=== PATIENT | female | born 1980 | race Caucasian/White ===

== ENCOUNTER 2018-04-30 18:54 | Emergency (ER) | payer MEDICAID ==
[2018-04-30 19:28] VITALS: BP 124/77
--- NOTE | 2018-04-30 19:55 | RADIOLOGY REPORT (SQ) ---
EXAM DESCRIPTION: ANKLE RIGHT COMPLETE COMPLETED DATE/TIME: 04/30/2018 7:42 pm REASON FOR STUDY: rt ankle pain COMPARISON: 05/08/2016 NUMBER OF VIEWS: Three views. TECHNIQUE: AP, lateral, and oblique radiographic images acquired of the right ankle. LIMITATIONS: None. FINDINGS: MINERALIZATION: Normal. BONES: Calcaneal spur. No fracture. Cystic changes seen in the anterior calcaneus. JOINTS: No effusions. SOFT TISSUES: No soft tissue swelling. No foreign body. OTHER: No other significant finding. 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 No acute abnormality. TECHNICAL DOCUMENTATION: JOB ID: [id number] [employer]- All Rights Reserved Reading location - IP/workstation name: [email or web address]
--- NOTE | 2018-04-30 20:50 | ER Document Report ---
HPI - HPI Pain Level: 3 Notes: Patient is a 37-year-old female no significant past medical history who presents to the ED complaining of right lateral ankle pain 2 days. Patient states that she was getting on and off the boat around that time when her ankle started hurting. Patient states that she is able to ambulate otherwise, but does have an occasional limp. She has not had any medicines for her symptoms. No other concerns or complaints. Denies any headache, fever, URI, sore throat, chest pain, palpitations, syncope, cough, shortness of breath, wheeze, dyspnea, abdominal pain, nausea/vomiting/diarrhea, urinary retention, dysuria, hematuria , or rash. - ROS Systems Reviewed and Negative: Yes All other systems reviewed and negative - REPRODUCTIVE Reproductive: REPORTS: : Past Medical History - Social History Smoking Status: Never Smoker Family History: Reviewed & Not Pertinent Past Surgical History: Reports: Hx Cholecystectomy - Immunizations Hx Diphtheria, Pertussis, Tetanus Vaccination: Yes Vertical Provider Document - CONSTITUTIONAL Agree With Documented VS: Yes Notes: PHYSICAL EXAMINATION: GENERAL: Well-appearing, well-nourished and in no acute distress. LUNGS: Breath sounds clear to auscultation bilaterally and equal. No wheezes rales or rhonchi. HEART: Regular rate and rhythm without murmurs, rubs, gallops. Musculoskeletal: Rt ankle: FROM to passive/active. Strength 5+/5. N/V intact distal. + tenderness to the lateral malleolus. No bony tenderness of the foot. Achilles intact. No obvious ecchymosis. + mild swelling lateral malleolus. Extremities: No cyanosis, clubbing, or edema b/l. Peripheral pulses 2+. Capillary refill less than 3 seconds. NEUROLOGICAL: Normal speech, minimal limping gait. Normal sensory, motor exams PSYCH: Normal mood, normal affect. SKIN: Warm, Dry, normal turgor, no rashes or lesions noted. - INFECTION CONTROL TRAVEL OUTSIDE OF THE [place] IN LAST 30 DAYS: No Course - Re-evaluation Re-evalutation: 04/30/18 20:48 Patient is an afebrile, well-hydrated, 37-year-old female who presents to the ED with Rt ankle pain which I suspect to be a sprain versus strain. Vitals are acceptable without any significant tachycardia, tachypnea, or hypoxia. PE is otherwise unremarkable for any neurovascular compromise, obvious tendon/ ligament rupture, obvious fracture/dislocation, septic joint. X-ray was unremarkable for any acute pathology aside from possible aneurysmal bone cyst to the calcaneus and noted heel spur. Ankle stirrup provided today. Patient is nontoxic-appearing. Patient is able to ambulate and weight-bear although she has a slight limp. Pt declined crutches. No other labs or imaging warranted at this time based on H&P. Conservative measures otherwise for symptoms. Recheck with your PCM in 3-5 days. Schedule an appointment with orthopedics for further evaluation and management. Return to the ED with any worsening/concerning symptoms otherwise as reviewed in discharge. Patient is in agreement. - Vital Signs Vital signs: Temp Pulse Resp BP Pulse Ox 97.6 F 81 16 124/77 100 04/30/18 19:25 04/30/18 19:25 04/30/18 19:25 04/30/18 19:25 04/30/18 19:25 Discharge - Discharge Clinical Impression: Right ankle pain Qualifiers: Chronicity: acute Qualified Code(s): M25.571 - Pain in right ankle and joints of right foot Condition: Stable Disposition: HOME, SELF-CARE Instructions: Ankle Stirrup Splint ([facility]), Sprained Ankle ([facility]), Ice & Elevation ([facility]) Additional Instructions: Rest, Ice, Compression, Elevation Tylenol/ibuprofen as needed Light stretches daily Strength exercises as able Moist heat and massage may help F/u with your PCP in 3-5 days for a recheck Call orthopedics to schedule an appointment for further evaluation and management Return to the ED with any worsening symptoms and/or development of fever, headache, chest pain, palpitations, syncope, shortness of breath, trouble breathing, abdominal pain, n/v/d, muscle weakness/paralysis, numbness/tingling, swelling, redness, or other worsening symptoms that are concerning to you. Referrals: [facility] [Provider Group] - Follow up in 1 week
== END 2018-04-30 21:33 | disposition home or self-care (01) ==
LOC: ER 18:54
DX: M25.571 Pain in right ankle and joints of right foot (principal)
CPT/HCPCS: 99283; 73610; L1902

== ENCOUNTER 2019-08-27 16:24 | Emergency (ER) | payer MEDICAID ==
[2019-08-27] MEDS ORDERED: DIPHENHYDRAMINE HCL 50 MG/ML VIAL IV ONE (17:11)
[2019-08-27] MEDS ORDERED: METOCLOPRAMIDE HCL INJ/PF 10 MG/2 ML SDV IV ONE (17:11)
[2019-08-27] MEDS ORDERED: KETOROLAC TROMETHAMINE INJ/PF 30 MG/1 ML SDV IV ONE (17:11)
--- NOTE | 2019-08-27 17:15 | ER Document Report ---
ED Medical Screen (RME) - General Chief Complaint: Headache Stated Complaint: HEADACHE, FACIAL PAIN, SWELLING Time Seen by Provider: 08/27/19 17:01 Notes: 39-year-old otherwise healthy female presents the emergency department with a migraine headache for the past week, a red right eye and right-sided neck swelling that started this morning. Patient also has small raised painful nodules on the anterior superior right dorsum the nose. No fevers or chills, no nausea or vomiting, no flulike symptoms. Exam: Well-appearing in no acute distress, there are 2 raised areas on the nose near the bridge that are painful to touch, patient does have some soft tissue swelling of the right anterior neck I have greeted and performed a rapid initial assessment of this patient. A comprehensive ED assessment and evaluation of the patient, analysis of test results and completion of medical decision making process will be conducted by an additional ED providers. TRAVEL OUTSIDE OF THE [place] IN LAST 30 DAYS: No - Related Data Allergies/Adverse Reactions: latex Allergy (Verified 05/08/16 20:24) Past Medical History - Social History Frequency of alcohol use: None Drug Abuse: None Renal/ Medical History: Denies: Hx Peritoneal Dialysis Past Surgical History: Reports: Hx Cholecystectomy - Immunizations Hx Diphtheria, Pertussis, Tetanus Vaccination: Yes Physical Exam - Vital signs Vitals: Temp Pulse Resp BP Pulse Ox 99.2 F 92 16 127/86 H 99 08/27/19 16:28 08/27/19 16:28 08/27/19 16:28 08/27/19 16:28 08/27/19 16:28 Course - Vital Signs Vital signs: Temp Pulse Resp BP Pulse Ox 99.2 F 92 16 127/86 H 99 08/27/19 16:28 08/27/19 16:28 08/27/19 16:28 08/27/19 16:28 08/27/19 16:28
[2019-08-27] MEDS ORDERED: VALACYCLOVIR HCL 500 MG TABLET PO ONE (17:46)
--- NOTE | 2019-08-27 17:47 | ER Document Report ---
HPI - HPI Patient complains to provider of: Headache pain Time Seen by Provider: 08/27/19 17:01 Onset: Last week Onset/Duration: Gradual Quality of pain: Achy Pain Level: 3 Context: Patient presents complaining of right-sided headache pain for the past week. Patient also noticed that she had some skin lesions pop up on the right side of her nose starting yesterday. Patient denies any nausea or vomiting. Patient does complain of some irritation to the right eye. Patient denies contact lenses although states that she is supposed to wear glasses. Associated Symptoms: Headache, Other - Skin rash to nose. denies: Fever, Rhinnorhea Exacerbated by: Denies Relieved by: Denies Similar symptoms previously: No Recently seen / treated by doctor: No - ROS Systems Reviewed and Negative: Yes All other systems reviewed and negative - CONSTITUTIONAL Constitutional: DENIES: Fever - EENT EENT: DENIES: Sore Throat - NEURO Neurology: REPORTS: Headache. DENIES: Vision blurred, Dizzinesss / Vertigo - RESPIRATORY Respiratory: DENIES: Coughing - GASTROINTESTINAL Gastrointestinal: DENIES: Nausea - DERM Skin Color: Erythema - Right side of nose Skin Problems: Rash Past Medical History - General Information source: Patient - Social History Smoking Status: Current Every Day Smoker Frequency of alcohol use: None Drug Abuse: None Occupation: Retail Lives with: Spouse/Significant other Family History: Reviewed & Not Pertinent Patient has suicidal ideation: Yes - pt states that she has clinical depression Patient has homicidal ideation: No Renal/ Medical History: Denies: Hx Peritoneal Dialysis Psychiatric Medical History: Reports: Hx Anxiety, Hx Depression Past Surgical History: Reports: Hx Cholecystectomy - Immunizations Hx Diphtheria, Pertussis, Tetanus Vaccination: Yes Vertical Provider Document - CONSTITUTIONAL Agree With Documented VS: Yes Exam Limitations: No Limitations General Appearance: WD/WN, No Apparent Distress - INFECTION CONTROL TRAVEL OUTSIDE OF THE [place] IN LAST 30 DAYS: No - HEENT HEENT: Atraumatic, Normocephalic, PERRLA Notes: Sclera clear bilaterally, no corneal abrasion, foreign body, ulcer or dendrite. - NECK Neck: Normal Inspection, Supple. negative: Lymphadenopathy-Left, Lymphadenopathy-Right - RESPIRATORY Respiratory: Breath Sounds Normal, No Respiratory Distress - CARDIOVASCULAR Cardiovascular: Regular Rate, Regular Rhythm - BACK Back: Normal Inspection - MUSCULOSKELETAL/EXTREMETIES Musculoskeletal/Extremeties: MAEW, FROM - NEURO Level of Consciousness: Awake, Alert, Appropriate Motor/Sensory: No Motor Deficit - DERM Integumentary: Warm, Dry, Rash - Erythematous papular rash to right side of nose, crusted lesion to tip of nose Course - Re-evaluation Re-evalutation: 08/27/19 19:54 Pt with headache right side of face, patient does have erythematous rash that looks suspicious for shingles to right side of nose. No evidence for any zoster ophthalmicus. Patient encouraged to follow-up with ophthalmology for recheck. The patient presents with headache without signs of ORTHOPHOTOGRAPHY TECHNICIAN bleed, stroke, or other serious etiology. The patient is neurologically intact. Given the extremely low risk of these diagnoses further testing and evaluation for these possibilities does not appear to be indicated at this time. The patient has been instructed to return if the symptoms worsen or change in any way. - Vital Signs Vital signs: Temp Pulse Resp BP Pulse Ox 99.2 F 92 16 127/86 H 99 08/27/19 16:28 08/27/19 16:28 08/27/19 16:28 08/27/19 16:28 08/27/19 16:28 - Laboratory Result Diagrams: 08/27/19 17:30 08/27/19 17:30 Laboratory results interpreted by me: 08/27/19 19:53 Labs- Entire Visit 08/27/19 08/27/19 17:30 17:30 WBC 11.9 H RBC 4.87 Hgb 13.2 Hct 40.2 MCV 83 MCH 27.0 MCHC 32.7 RDW 14.9 H Plt Count 339 Lymph % (Auto) 22.7 Chaves % (Auto) 7.2 Eos % (Auto) 1.2 Baso % (Auto) 1.1 Absolute Neuts (auto) 8.1 Absolute Lymphs (auto) 2.7 Absolute Monos (auto) 0.9 Absolute Eos (auto) 0.1 Absolute Basos (auto) 0.1 Seg Neutrophils % 67.8 Sodium 141.1 Potassium 4.1 Chloride 104 Carbon Dioxide 26 Anion Gap 11 BUN 11 Creatinine 0.68 Est GFR ( Amer) > 60 Est GFR (MDRD) Non-Af > 60 Glucose 92 Calcium 9.5 Total Bilirubin 0.3 Direct Bilirubin 0.2 Neonat Total Bilirubin Not Reportable Neonat Direct Bilirubin Not Reportable Neonat Indirect Bili Not Reportable AST 18 ALT 13 Alkaline Phosphatase 98 Total Protein 8.2 Albumin 4.5 Discharge - Discharge Clinical Impression: Headache Qualifiers: Headache type: unspecified Headache chronicity pattern: unspecified pattern Intractability: not intractable Qualified Code(s): R51 - Headache Shingles Qualifiers: Herpes zoster complications: without complications Qualified Code(s): B02.9 - Zoster without complications Condition: Stable Disposition: HOME, SELF-CARE Instructions: Headache ([facility]), Oral Narcotic Medication ([facility]), Shingles ([facility]) Additional Instructions: Return immediately for any new or worsening symptoms Followup with your primary care provider, call tomorrow to make a followup appointment Follow-up with store loss prevention manager for recheck, call tomorrow for an appointment Prescriptions: Butalb/Acetaminophen/Caffeine [Fioricet (50-325-40 mg) Tablet] 1 - 2 tab PO Q4H PRN #12 each PRN Reason: Valacyclovir HCl [Valacyclovir] 1,000 mg PO TID #21 tablet Referrals: [facility] [Provider Group] - Follow up tomorrow
[2019-08-27 18:08] LABS: ABSOLUTE BASOPHILS # (AUTO) 0.1 10^3/uL (0.0-0.2); ABSOLUTE EOSINOPHILS # (AUTO) 0.1 10^3/uL (0.0-0.6); ABSOLUTE LYMPHOCYTES (AUTO) 2.7 10^3/uL (0.5-4.7); ABSOLUTE MONOCYTES (AUTO) 0.9 10^3/uL (0.1-1.4); ABSOLUTE NEUT (AUTO) 8.1 10^3/uL (1.7-8.2); BASOPHILS % (AUTO) 1.1 % (0-2); EOSINOPHILS % (AUTO) 1.2 % (0-6); HEMATOCRIT 40.2 % (36.0-47.0); HEMOGLOBIN 13.2 g/dL (12.0-15.5); LYMPHOCYTES % (AUTO) 22.7 % (13-45); MEAN CORPUSCULAR HGB CONC 32.7 g/dL (32.0-36.0); MEAN CORPUSCULAR VOLUME 83 fl (80-97); MONOCYTES % (AUTO) 7.2 % (3-13); PLATELET COUNT 339 10^3/uL (150-450); RED BLOOD COUNT 4.87 10^6/uL (3.72-5.28); RED CELL DISTRIBUTION WIDTH 14.9 % (11.5-14.0); SEGMENTED NEUTROPHILS % (AUTO) 67.8 % (42-78); TOTAL CELLS COUNTED % (AUTO) 100 %; WHITE BLOOD COUNT 11.9 10^3/uL (4.0-10.5)
[2019-08-27 18:26] LABS: ALBUMIN 4.5 g/dL (3.5-5.0); ALKALINE PHOSPHATASE 98 U/L (38-126); ANION GAP 11 (5-19); ASPARTATE AMINO TRANSFERASE 18 U/L (14-36); BILIRUBIN,DIRECT 0.2 mg/dL (0.0-0.4); BILIRUBIN,TOTAL 0.3 mg/dL (0.2-1.3); BLOOD UREA NITROGEN 11 mg/dL (7-20); CALCIUM 9.5 mg/dL (8.4-10.2); CARBON DIOXIDE 26 mmol/L (22-30); CHLORIDE 104 mmol/L (98-107); GLUCOSE 92 mg/dL (75-110); POTASSIUM 4.1 mmol/L (3.6-5.0); TOTAL PROTEIN 8.2 g/dL (6.3-8.2)
[2019-08-27 22:04] VITALS: BP 95/58
== END 2019-08-27 22:06 | disposition home or self-care (01) ==
LOC: ER 16:24
DX: R51 Headache (principal); B02.9 Zoster without complications; J02.9 Acute pharyngitis, unspecified; F17.200 Nicotine dependence, unspecified, uncomplicated
CPT/HCPCS: 99284; 96374; 96375; 36415; 85025; 80053; J1200; J2765; J1885; J3490